=== PATIENT | female | born 1975 | race Caucasian/White ===

== ENCOUNTER 2017-03-22 11:28 | Emergency (ER) | payer OTHER ==
[2017-03-22 11:32] VITALS: BP 130/65; PULSE 83; TEMP 98; O2SAT 98; BMI 25.5
[2017-03-22 11:34] VITALS: RESP 16
--- NOTE | 2017-03-22 12:15 | ED PDOC ---
HPI: General Adult Time Seen by Provider: 03/22/17 11:38 Chief Complaint (Nursing): ENT Problem History Per: Patient Additional Complaint(s): Pt. states she's had a sore throat x 3 weeks. Initially resolved with Tylenol but has since returned. Reports pain is greatest on R side of throat but is present on both. Also states that sore throat radiates to her R ear. Denies congestion, fever, cough, throat swelling, rash. Past Medical History Reviewed: Historical Data, Nursing Documentation, Vital Signs Vital Signs: Last Vital Signs Temp 98 F 03/22/17 11:31 Pulse 83 03/22/17 11:31 Resp 16 03/22/17 11:34 BP 130/65 03/22/17 11:31 Pulse Ox 98 03/22/17 12:16 - Medical History PMH: Denies: Chronic Kidney Disease - Family History Family History: States: No Known Family Hx - Home Medications Home Medications: Ambulatory Orders Medication Instructions Recorded Ca/Cholecalciferol/Fe/Folic 1 1 tab PO DAILY 08/24/15 [Basic's Vitamins] Ferrous Sulfate 325 mg PO BID #60 tab 08/26/15 Ibuprofen [Motrin Tab] 600 mg PO Q6 PRN #30 tab 08/26/15 Sennosides A and B [Senokot Tab] 17.2 mg PO HS #30 tab 08/26/15 Naproxen [Naprosyn] 500 mg PO BID PRN #30 tab 03/22/17 - Allergies Allergies/Adverse Reactions: Allergies Allergy/AdvReac Type Severity Reaction Status Date / Time No Known Allergies Allergy Verified 11/17/13 10:11 Review of Systems ROS Statement: Except As Marked, All Systems Reviewed And Found Negative ENT: Positive for: Throat Pain Physical Exam - Physical Exam Appears: Positive for: Well, Non-toxic, No Acute Distress Skin: Positive for: Normal Color, Warm. Negative for: Rash Eye Exam: Positive for: EOMI, Normal appearance, PERRL ENT: Positive for: TM Is/Are (non-erythematous, non-bugling b/l), Pharyngeal Erythema. Negative for: Tonsillar Exudate, Tonsillar Swelling Neck: Positive for: Normal, Painless ROM Cardiovascular/Chest: Positive for: Regular Rate, Rhythm Respiratory: Positive for: Normal Breath Sounds. Negative for: Crackles, Rales , Rhonchi, Wheezing Gastrointestinal/Abdominal: Positive for: Normal Exam, Soft. Negative for: Tenderness, Organomegaly Back: Positive for: Normal Inspection Extremity: Positive for: Normal ROM Neurologic/Psych: Positive for: Alert, Oriented - ECG O2 Sat by Pulse Oximetry: 98 - Progress ED Course And Treament: Rapid strep: negative Disposition - Clinical Impression Clinical Impression: Pharyngitis - Patient ED Disposition Is Patient to be Admitted: No - Disposition Referrals: [facility] [Outside] Disposition: Routine/Home Disposition Time: 13:26 Condition: STABLE Prescriptions: Naproxen [Naprosyn] 500 mg PO BID PRN #30 tab PRN Reason: Pain Instructions: Pharyngitis (ED) Forms: [employer] (N[place]ian) Print Language: PALESTINIAN
== END 2017-03-22 13:37 | disposition home or self-care (01) ==
LOC: H.ER 11:28
DX: J02.9 Acute pharyngitis, unspecified (principal)